=== PATIENT | female | born 1960 | race Hispanic/Latino ===

== ENCOUNTER 2019-02-27 20:18 | Emergency (ER) | payer OTHER ==
[~2019-02-27] VITALS: Ht 162.6 cm; Wt 84.4 kg
== END 2019-02-27 20:45 | disposition home or self-care (01) ==
LOC: ER 20:18
DX: L02.31 Cutaneous abscess of buttock (principal); K21.9 Gastro-esophageal reflux disease without esophagitis; Z88.5 Allergy status to narcotic agent; Z91.040 Latex allergy status
CPT/HCPCS: 99282

== ENCOUNTER 2020-07-24 16:57 | Inpatient (IN) | payer OTHER ==
[~2020-07-24] VITALS: Ht 162.6 cm; Wt 87.1 kg
[2020-07-24] MEDS ORDERED: ASPIRIN 81 MG CHEW TAB PO ONE (18:15)
[2020-07-24 18:22] LABS: BASOPHILS # (AUTO) 0.1 (0.0-0.1); BASOPHILS % 0.6 % (0.0-1.0); EOSINOPHILS # (AUTO) 0.2 (0.0-0.4); EOSINOPHILS % 1.7 % (0.0-6.0); HEMATOCRIT 46.5 % (34.2-44.1); HEMOGLOBIN 15.4 g/dL (12.0-16.0); LYMPHOCYTES # (AUTO) 3.4 (1.0-3.2); LYMPHOCYTES % 36.7 % (18.0-39.1); MEAN CORPUSCULAR HEMOGLOBIN 29.8 pg (28-32); MEAN CORPUSCULAR HGB CONC 33.1 g/dL (31-35); MEAN CORPUSCULAR VOLUME 89.9 fL (81-99); MONOCYTES # (AUTO) 0.9 (0.2-0.8); MONOCYTES % 9.9 % (4.4-11.3); NEUTROPHILS # (AUTO) 4.7 (2.1-6.9); NEUTROPHILS % 50.6 % (38.7-80.0); PLATELET COUNT 116 x10e3/uL (140-360); RED BLOOD COUNT 5.17 x10e6/uL (3.6-5.1)
[2020-07-24 18:27] LABS: INR 0.98; PROTHROMBIN TIME 13.6 seconds (11.9-14.5)
[2020-07-24 18:36] LABS: ALANINE AMINOTRANSFERASE 65 IU/L (0-55); ALBUMIN 4.5 g/dL (3.5-5.0); ALBUMIN/GLOBULIN RATIO 1.3 (0.8-2.0); ALKALINE PHOSPHATASE 96 IU/L (40-150); ANION GAP 15.3 mmol/L (8-16); BLOOD UREA NITROGEN 8 mg/dL (7-26); BUN/CREATININE RATIO 10 (6-25); CALCIUM 9.2 mg/dL (8.4-10.2); CARBON DIOXIDE 18 mmol/L (22-29); CHLORIDE 109 mmol/L (98-107); CREATINE KINASE 52 IU/L (29-168); CREATININE, SERUM 0.77 mg/dL (0.57-1.11); EST GLOMERULAR FILTRATION RATE > 60 ML/MIN (60-); GLUCOSE 95 mg/dL (74-118); POTASSIUM 4.3 mmol/L (3.5-5.1); SODIUM 138 mmol/L (136-145)
[2020-07-24] MEDS ORDERED: IOPAMIDOL 370 MG/ML 200 ML INFUS..BTL INJ ONE (19:10)
[2020-07-24] MEDS ORDERED: SODIUM CHLORIDE 0.9% 50ML 50 ML ONE (19:10)
[2020-07-24] MEDS ORDERED: ONDANSETRON HCL INJ 2MG/ML 2ML 2 MG/ML VIAL IV PRN (20:30)
[2020-07-24] MEDS ORDERED: MORPHINE SULFATE INJ 4 MG/ML INJ 1ML IV PRN (20:45)
[2020-07-24] MEDS ORDERED: PIPER-TAZ 3.375 GM / NS 50ML IV SCH (22:00)
[2020-07-24 22:28] VITALS: BP 101/74
[2020-07-24] MEDS: PIPERACILLIN/TAZOBAC 3.375 GM in SODIUM CHLORIDE 0.9% 50ML 50 ML IV SCH (23:14)
[2020-07-24] MEDS ORDERED: SODIUM CHLORIDE 0.9% 250ML 250 ML ONE (23:15)
[2020-07-25] VITALS (8 sets, daily range): BP systolic 91–110; BP diastolic 64–72
[2020-07-25] MEDS: PIPERACILLIN/TAZOBAC 3.375 GM in SODIUM CHLORIDE 0.9% 50ML 50 ML IV SCH ×3 (05:08→21:37)
[2020-07-25 05:29] LABS: BASOPHILS % 0.5 % (0.0-1.0); EOSINOPHILS # (AUTO) 0.2 (0.0-0.4); EOSINOPHILS % 2.3 % (0.0-6.0); HEMATOCRIT 43.6 % (34.2-44.1); HEMOGLOBIN 14.5 g/dL (12.0-16.0); LYMPHOCYTES # (AUTO) 2.7 (1.0-3.2); LYMPHOCYTES % 36.3 % (18.0-39.1); MEAN CORPUSCULAR HEMOGLOBIN 29.6 pg (28-32); MEAN CORPUSCULAR HGB CONC 33.3 g/dL (31-35); MONOCYTES # (AUTO) 0.9 (0.2-0.8); MONOCYTES % 11.7 % (4.4-11.3); NEUTROPHILS # (AUTO) 3.7 (2.1-6.9); NEUTROPHILS % 48.9 % (38.7-80.0); PLATELET COUNT 114 x10e3/uL (140-360)
[2020-07-25 06:02] LABS: ALANINE AMINOTRANSFERASE 52 IU/L (0-55); ALBUMIN 3.8 g/dL (3.5-5.0); ALBUMIN/GLOBULIN RATIO 1.2 (0.8-2.0); ALKALINE PHOSPHATASE 77 IU/L (40-150); BLOOD UREA NITROGEN 8 mg/dL (7-26); BUN/CREATININE RATIO 11 (6-25); CALCIUM 8.6 mg/dL (8.4-10.2); CARBON DIOXIDE 23 mmol/L (22-29); CHLORIDE 106 mmol/L (98-107); CREATININE, SERUM 0.72 mg/dL (0.57-1.11); EST GLOMERULAR FILTRATION RATE > 60 ML/MIN (60-); GLUCOSE 121 mg/dL (74-118); SODIUM 139 mmol/L (136-145)
[2020-07-25] MEDS ORDERED: ACETAMINOPHEN 325 MG TAB PO PRN (06:30)
[2020-07-25] MEDS ORDERED: HYDRALAZINE HCL 20 MG/ML VIAL IV PRN (06:30)
[2020-07-25] MEDS ORDERED: MELATONIN 5 MG TABLET PO PRN (06:30)
[2020-07-25] MEDS ORDERED: MORPHINE SULFATE INJ 2 MG/ML SYR IV PRN (07:15)
[2020-07-25] MEDS: FAMOTIDINE 20 MG TAB PO SCH ×2 (08:53→15:23)
[2020-07-25] MEDS: DICYCLOMINE HCL 10 MG CAP PO SCH ×3 (08:53→20:58)
[2020-07-25] MEDS: HYDROCODONE/APAP 5MG-325MG TAB PO PRN (20:58)
[2020-07-26] VITALS (8 sets, daily range): BP systolic 94–120; BP diastolic 59–84
[2020-07-26] MEDS: METRONIDAZOLE 500MG/NS 100ML 100 ML IV SCH ×3 (05:02→22:02)
[2020-07-26] MEDS: PIPERACILLIN/TAZOBAC 3.375 GM in SODIUM CHLORIDE 0.9% 50ML 50 ML IV SCH ×3 (05:29→21:13)
[2020-07-26 06:45] LABS: BASOPHILS # (AUTO) 0.1 (0.0-0.1); BASOPHILS % 0.9 % (0.0-1.0); EOSINOPHILS # (AUTO) 0.2 (0.0-0.4); EOSINOPHILS % 3.9 % (0.0-6.0); HEMATOCRIT 45.2 % (34.2-44.1); HEMOGLOBIN 14.9 g/dL (12.0-16.0); LYMPHOCYTES % 37.2 % (18.0-39.1); MEAN CORPUSCULAR HEMOGLOBIN 29.4 pg (28-32); MEAN CORPUSCULAR VOLUME 89.2 fL (81-99); MONOCYTES # (AUTO) 0.6 (0.2-0.8); MONOCYTES % 11.5 % (4.4-11.3); NEUTROPHILS # (AUTO) 2.5 (2.1-6.9); NEUTROPHILS % 46.1 % (38.7-80.0); PLATELET COUNT 101 x10e3/uL (140-360); RED BLOOD COUNT 5.07 x10e6/uL (3.6-5.1); RED CELL DISTRIBUTION WIDTH 14.1 % (11.7-14.4)
[2020-07-26 07:05] LABS: ALANINE AMINOTRANSFERASE 63 IU/L (0-55); ALBUMIN 3.8 g/dL (3.5-5.0); ALBUMIN/GLOBULIN RATIO 1.2 (0.8-2.0); ALKALINE PHOSPHATASE 73 IU/L (40-150); ANION GAP 16.2 mmol/L (8-16); BLOOD UREA NITROGEN 10 mg/dL (7-26); BUN/CREATININE RATIO 13 (6-25); CALCIUM 8.4 mg/dL (8.4-10.2); CARBON DIOXIDE 22 mmol/L (22-29); CHLORIDE 107 mmol/L (98-107); CREATININE, SERUM 0.76 mg/dL (0.57-1.11); EST GLOMERULAR FILTRATION RATE > 60 ML/MIN (60-); GLUCOSE 111 mg/dL (74-118); POTASSIUM 4.2 mmol/L (3.5-5.1); SODIUM 141 mmol/L (136-145)
[2020-07-26 07:25] LABS: CHOL/HDL RATIO 6.2 (3.0-3.6)
[2020-07-26 07:37] LABS: THYROID STIMULATING HORMONE 0.694 uIU/mL (0.350-4.940)
[2020-07-26] MEDS: FAMOTIDINE 20 MG TAB PO SCH ×2 (08:20→16:53)
[2020-07-26] MEDS: FENOFIBRATE 145 MG TAB PO SCH (09:29)
[2020-07-26] MEDS: DICYCLOMINE HCL 10 MG CAP PO SCH ×3 (09:29→21:13)
[2020-07-26] MEDS: HYDROCODONE/APAP 5MG-325MG TAB PO PRN (09:30)
[2020-07-27] VITALS (9 sets, daily range): BP systolic 92–110; BP diastolic 49–67
[2020-07-27] MEDS: PIPERACILLIN/TAZOBAC 3.375 GM in SODIUM CHLORIDE 0.9% 50ML 50 ML IV SCH ×3 (05:21→21:18)
[2020-07-27] MEDS: METRONIDAZOLE 500MG/NS 100ML 100 ML IV SCH ×3 (06:10→22:45)
[2020-07-27 06:49] LABS: BASOPHILS # (AUTO) 0.1 (0.0-0.1); BASOPHILS % 1.2 % (0.0-1.0); EOSINOPHILS # (AUTO) 0.1 (0.0-0.4); EOSINOPHILS % 2.9 % (0.0-6.0); HEMATOCRIT 45.1 % (34.2-44.1); LYMPHOCYTES % 40.3 % (18.0-39.1); MEAN CORPUSCULAR HEMOGLOBIN 29.3 pg (28-32); MEAN CORPUSCULAR HGB CONC 33.3 g/dL (31-35); MEAN CORPUSCULAR VOLUME 88.1 fL (81-99); MONOCYTES # (AUTO) 0.5 (0.2-0.8); MONOCYTES % 10.7 % (4.4-11.3); NEUTROPHILS # (AUTO) 2.2 (2.1-6.9); NEUTROPHILS % 44.7 % (38.7-80.0); PLATELET COUNT 140 x10e3/uL (140-360); RED BLOOD COUNT 5.12 x10e6/uL (3.6-5.1); RED CELL DISTRIBUTION WIDTH 13.7 % (11.7-14.4)
[2020-07-27 07:18] LABS: ALANINE AMINOTRANSFERASE 77 IU/L (0-55); ALBUMIN 3.8 g/dL (3.5-5.0); ALBUMIN/GLOBULIN RATIO 1.3 (0.8-2.0); ALKALINE PHOSPHATASE 66 IU/L (40-150); BLOOD UREA NITROGEN 12 mg/dL (7-26); BUN/CREATININE RATIO 16 (6-25); CALCIUM 8.7 mg/dL (8.4-10.2); CARBON DIOXIDE 25 mmol/L (22-29); CHLORIDE 106 mmol/L (98-107); CREATININE, SERUM 0.76 mg/dL (0.57-1.11); EST GLOMERULAR FILTRATION RATE > 60 ML/MIN (60-); GLUCOSE 108 mg/dL (74-118); SODIUM 138 mmol/L (136-145)
[2020-07-27] MEDS: DICYCLOMINE HCL 10 MG CAP PO SCH ×3 (08:04→21:18)
[2020-07-27] MEDS: FAMOTIDINE 20 MG TAB PO SCH ×2 (08:04→16:16)
[2020-07-27] MEDS: FENOFIBRATE 145 MG TAB PO SCH (08:04)
[2020-07-28 04:52] VITALS: BP 90/66
[2020-07-28] MEDS: PIPERACILLIN/TAZOBAC 3.375 GM in SODIUM CHLORIDE 0.9% 50ML 50 ML IV SCH (05:03)
[2020-07-28 05:42] LABS: BASOPHILS # (AUTO) 0.1 (0.0-0.1); BASOPHILS % 1.1 % (0.0-1.0); EOSINOPHILS # (AUTO) 0.1 (0.0-0.4); HEMATOCRIT 43.2 % (34.2-44.1); HEMOGLOBIN 14.4 g/dL (12.0-16.0); LYMPHOCYTES # (AUTO) 2.2 (1.0-3.2); LYMPHOCYTES % 46.4 % (18.0-39.1); MEAN CORPUSCULAR HEMOGLOBIN 29.3 pg (28-32); MEAN CORPUSCULAR HGB CONC 33.3 g/dL (31-35); MONOCYTES # (AUTO) 0.5 (0.2-0.8); MONOCYTES % 11.1 % (4.4-11.3); NEUTROPHILS # (AUTO) 1.8 (2.1-6.9); NEUTROPHILS % 38.2 % (38.7-80.0); PLATELET COUNT 142 x10e3/uL (140-360); RED BLOOD COUNT 4.91 x10e6/uL (3.6-5.1); RED CELL DISTRIBUTION WIDTH 13.7 % (11.7-14.4)
[2020-07-28 06:01] LABS: ALANINE AMINOTRANSFERASE 74 IU/L (0-55); ALBUMIN 3.8 g/dL (3.5-5.0); ALBUMIN/GLOBULIN RATIO 1.3 (0.8-2.0); ALKALINE PHOSPHATASE 62 IU/L (40-150); ANION GAP 12.9 mmol/L (8-16); BLOOD UREA NITROGEN 14 mg/dL (7-26); BUN/CREATININE RATIO 18 (6-25); CALCIUM 8.6 mg/dL (8.4-10.2); CARBON DIOXIDE 24 mmol/L (22-29); CHLORIDE 107 mmol/L (98-107); CREATININE, SERUM 0.77 mg/dL (0.57-1.11); EST GLOMERULAR FILTRATION RATE > 60 ML/MIN (60-); GLUCOSE 98 mg/dL (74-118); POTASSIUM 3.9 mmol/L (3.5-5.1); SODIUM 140 mmol/L (136-145)
[2020-07-28] MEDS: METRONIDAZOLE 500MG/NS 100ML 100 ML IV SCH (06:01)
[2020-07-28] MEDS ORDERED: ONDANSETRON HCL 4 MG ORAL DISINTEGRATING TAB PO PRN (08:00)
[2020-07-28 08:34] VITALS: BP 102/72
[2020-07-28] MEDS: FAMOTIDINE 20 MG TAB PO SCH (08:35)
[2020-07-28] MEDS: DICYCLOMINE HCL 10 MG CAP PO SCH (08:35)
[2020-07-28] MEDS: FENOFIBRATE 145 MG TAB PO SCH (08:35)
[2020-07-28] MEDS: HYDROCODONE/APAP 5MG-325MG TAB PO PRN (08:51)
[2020-07-28 09:26] VITALS: BP 102/72
[2020-07-28] MEDS ORDERED: FLAGYL500 MG PO (10:52)
[2020-07-28] MEDS ORDERED: CIPRO500 MG PO (10:52)
[2020-07-28] MEDS ORDERED: DICYCLOMINE HCL10 MG PO (10:52)
[2020-07-28] MEDS ORDERED: ULTRAM 50MG50 MG PO (10:52)
[2020-07-28] MEDS ORDERED: FENOFIBRATE145 MG PO (10:52)
[2020-07-28 12:30] VITALS: BP 108/67
== END 2020-07-28 12:40 | disposition home or self-care (01) | DRG 392 ==
LOC: ER 18:10 → ERHOLD 20:29 → MED/SURG 22:30 → OBSVTOIN 07-25 16:08
PROVIDERS: ADMIT Internal Medicine; ATTEND Internal Medicine
DX: K57.32 Diverticulitis of large intestine without perforation or abscess without bleeding (principal); K21.9 Gastro-esophageal reflux disease without esophagitis; E66.9 Obesity, unspecified; K75.81 Nonalcoholic steatohepatitis (NASH); Z88.5 Allergy status to narcotic agent; Z88.8 Allergy status to other drugs, medicaments and biological substances; Z91.040 Latex allergy status; Z80.9 Family history of malignant neoplasm, unspecified; Z68.33 Body mass index [BMI] 33.0-33.9, adult; J45.909 Unspecified asthma, uncomplicated; E78.1 Pure hyperglyceridemia; Z20.822 Contact with and (suspected) exposure to COVID-19
CPT/HCPCS: 36415; 74177; 80053; 80061; 82550; 82553; 83036; 83690; 84443; 84484; 85025; 85610; 96360; 99284; G0378; J2270; J2405; J2543; J7050; Q9967; U0002

== ENCOUNTER 2022-06-28 15:51 | Emergency (ER) | payer OTHER ==
[~2022-06-28] VITALS: Ht 162.6 cm; Wt 81.6 kg
[~2022-06-28 15:51] MED LIST: CIPRO500 MG PO; DICYCLOMINE HCL10 MG PO; FENOFIBRATE145 MG PO; FLAGYL500 MG PO; ULTRAM 50MG50 MG PO
[2022-06-28 18:34] LABS: CLARITY,URINE CLEAR (CLEAR); COLOR,URINE YELLOW (YELLOW)
[2022-06-28 18:35] LABS: KETONES,URINE NEGATIVE (NEGATIVE); LEUKOCYTE ESTERASE ,URINE TRACE (NEGATIVE); NITRITE,URINE NEGATIVE (NEGATIVE); PROTEIN,URINE DIPSTICK NEGATIVE (NEGATIVE)
[2022-06-28 18:40] LABS: BACTERIA,URINE FEW /HPF; EPITHELIAL CELLS,URINE RARE /LPF; RBC,URINE 0-5 /HPF (0-5); WBC,URINE (MAN) 0-5 /HPF (0-5)
[2022-06-28] MEDS ORDERED: IBUPROFEN600 MG PO (19:04)
[2022-06-28] MEDS ORDERED: METHOCARBAMOL750 MG PO (19:04)
[2022-06-28] MEDS ORDERED: TIZANIDINE HCL2 M1 PO (19:39)
== END 2022-06-28 19:53 | disposition home or self-care (01) ==
LOC: ER 16:20
DX: S39.012A Strain of muscle, fascia and tendon of lower back, initial encounter (principal); R11.2 Nausea with vomiting, unspecified; R10.30 Lower abdominal pain, unspecified; J45.909 Unspecified asthma, uncomplicated; K21.9 Gastro-esophageal reflux disease without esophagitis
CPT/HCPCS: 36415; 81001; 82948; 99283

== ENCOUNTER 2023-02-17 18:51 | Emergency (ER) | payer OTHER ==
[~2023-02-17] VITALS: Ht 162.6 cm; Wt 81.6 kg
[~2023-02-17 18:51] MED LIST changes: +IBUPROFEN600 MG PO; +METHOCARBAMOL750 MG PO; +TIZANIDINE HCL2 M1 PO
[2023-02-17] MEDS ORDERED: IBUPROFEN 600 MG TAB PO STA (18:55)
[2023-02-17 21:18] VITALS: PULSE 76; RESP 16; TEMP 98; O2SAT 99
== END 2023-02-17 21:20 | disposition home or self-care (01) ==
LOC: ER 18:55
DX: S60.221A Contusion of right hand, initial encounter (principal); W23.1XXA Caught, crushed, jammed, or pinched between stationary objects, initial encounter; Y92.89 Other specified places as the place of occurrence of the external cause; J45.909 Unspecified asthma, uncomplicated; K21.9 Gastro-esophageal reflux disease without esophagitis
CPT/HCPCS: 99283

== ENCOUNTER 2023-04-07 16:53 | Emergency (ER) | payer OTHER ==
[~2023-04-07] VITALS: Ht 162.6 cm; Wt 81.6 kg
[2023-04-07] MEDS ORDERED: KETOROLAC TROMETHAMINE 30 MG/ML VIAL IV STA (17:18)
[2023-04-07] MEDS ORDERED: DEXAMETHASONE 4 MG TAB PO STA (17:18)
[2023-04-07] MEDS ORDERED: ACETAMINOPHEN 325 MG TAB ONE (17:24)
[2023-04-07] MEDS ORDERED: DEXAMETHASONE SOD PHOS 10 MG/1 ML VIAL ONE (17:24)
[2023-04-07] MEDS ORDERED: KETOROLAC TROMETHAMINE 60 MG/2 ML VIAL ONE (17:24)
[2023-04-07] MEDS ORDERED: ACETAMINOPHEN 325 MG TAB PO ONE (17:30)
[2023-04-07] MEDS ORDERED: MUCINEX DM ER1 EAC1 PO (17:38)
[2023-04-07] MEDS ORDERED: PROVENTIL HFA6.7 GM INH (17:40)
[2023-04-07 17:58] LABS: RESPIRATORY SYNC. VIRUS NEGATIVE (NEGATIVE)
[2023-04-07 17:59] LABS: INFLUENZAE A&B ANTIGEN (RAPID) POSITIVE FLU A (NEGATIVE)
[2023-04-07] MEDS ORDERED: XOFLUZA80 MG PO (18:00)
[2023-04-07] MEDS ORDERED: TAMIFLU75 MG PO (19:22)
[2023-04-07 20:07] VITALS: O2SAT 95
== END 2023-04-07 20:09 | disposition home or self-care (01) ==
LOC: ER 16:58
DX: R50.9 Fever, unspecified (principal); J10.1 Influenza due to other identified influenza virus with other respiratory manifestations; J45.909 Unspecified asthma, uncomplicated; K21.9 Gastro-esophageal reflux disease without esophagitis; Z11.52 Encounter for screening for COVID-19
CPT/HCPCS: 71046; 87400; 87420; 99284; J1885; J8540; U0002; J1100

== ENCOUNTER 2024-05-01 10:18 | Emergency (ER) | payer OTHER ==
[~2024-05-01] VITALS: Ht 162.6 cm; Wt 83.9 kg
[~2024-05-01 10:18] MED LIST changes: +MUCINEX DM ER1 EAC1 PO; +PROVENTIL HFA6.7 GM INH; +TAMIFLU75 MG PO; +XOFLUZA80 MG PO
[2024-05-01 10:41] VITALS: PULSE 57; RESP 18; TEMP 98.3
[2024-05-01] MEDS: TRAMADOL HCL 50 MG TAB PO ONE (10:55)
[2024-05-01] MEDS ORDERED: ULTRAM 50MG50 MG PO (12:28)
[2024-05-01 13:32] VITALS: BP 110/77; PULSE 72; RESP 18; O2SAT 100
== END 2024-05-01 13:35 | disposition home or self-care (01) ==
LOC: ER 10:53
DX: S63.591A Other specified sprain of right wrist, initial encounter (principal); X50.1XXA Overexertion from prolonged static or awkward postures, initial encounter; Y92.89 Other specified places as the place of occurrence of the external cause; J45.909 Unspecified asthma, uncomplicated; K21.9 Gastro-esophageal reflux disease without esophagitis; Z87.19 Personal history of other diseases of the digestive system
CPT/HCPCS: 99283